=== PATIENT | male | born 1990 | race Caucasian/White ===

== ENCOUNTER → 2022-02-14 15:26 | Outpatient (CLI) | payer OTHER, SELFPAY ==
--- NOTE | ~2022-02-14 | XR_ITS ---
EXAM: XR lumbar spine 2-3V DATE: 02/14/2022 15:51 HISTORY: Lumbago with sciatica, left side . COMPARISON: None available. FINDINGS: 5 nonrib-bearing lumbar-type vertebral bodies. Pedicles intact. Normal vertebral body alig nment. Vertebral body heights preserved. Moderate disc space narrowing at L4-5. Multilevel facet scle rosis in the lower lumbar spine. No fracture or dislocation. IMPRESSION: Moderate degenerative disc disease at L4-5. Lower lumbar facet arthropathy. Reviewed, dictated and finalized at location K. IMPRESSION: Moderate degenerative disc disease at L4-5. Lower lumbar facet arth ropathy.
== END ==
PROVIDERS: PCP Internal Medicine; Visit Provider Internal Medicine
DX: M54.42 Lumbago with sciatica, left side (principal); M51.36 Other intervertebral disc degeneration, lumbar region
CPT/HCPCS: 72100

== ENCOUNTER → 2023-09-13 14:38 | Outpatient (CLI) | payer OTHER, SELFPAY ==
--- NOTE | ~2023-09-13 | XR_ITS ---
EXAMINATION: XR lumbar spine 2-3V DATE: 09/13/2023 15:10 INDICATION: Low back pain, unspecified. TECHNIQUE: 3 views of lumbar spine were obtained. COMPARISON: Lumbar spine radiographs 02/14/2022 FINDINGS: There is 9 degrees levocurvature of lumbar spine. There is mild chronic anterior wedging of L5 vertebral body. There is moderately decreased disc height at L4-L5. There is multilevel mild face t joint osteoarthritis. IMPRESSION: 1. Moderate lumbar spondylosis. Reviewed, dictated and finalized at location A. [employer]
== END ==
PROVIDERS: PCP Internal Medicine; Visit Provider Internal Medicine
DX: M47.896 Other spondylosis, lumbar region (principal)
CPT/HCPCS: 72100